=== PATIENT | male | born 1990 | race Caucasian/White ===

== ENCOUNTER 2017-11-01 21:22 | Emergency (ER) | payer SELFPAY ==
[~2017-11-01] VITALS: Ht 177.8 cm; Wt 66.2 kg
[~2017-11-01 21:22] MED LIST: SUBOXONE 8 MG-1 EAC2 SL
[2017-11-01 21:57] LABS: HEMATOCRIT 38.2 % (38.0-50.0); HEMOGLOBIN 13.9 G/DL (12.5-16.6); MCH 33.4 PG (29.0-34.0); MCHC 36.4 G/DL (30.0-36.0); MCV 91.8 FL (86-99); PLATELET COUNT 217 K/uL (156-360); RBC DIS.WIDTH-CV 11.6 % (11.8-14.6); RBC DIS.WIDTH-SD 38.9 % (39-53); RED BLOOD COUNT 4.16 M/uL (4.00-5.50); WHITE BLOOD COUNT 12.9 K/uL (4.1-10.2)
[2017-11-01 22:05] LABS: ALBUMIN 4.6 g/dL (3.2-4.8)
[2017-11-01 22:06] LABS: CHLORIDE 99 mEq/L (99-109); POTASSIUM 3.3 mEq/L (3.7-5.4); SODIUM 138 mEq/L (136-147)
[2017-11-01 22:08] LABS: GLUCOSE 204 mg/dL (70-99); TOTAL PROTEIN 7.1 g/dL (6.4-8.3)
[2017-11-01 22:10] LABS: TOTAL BILIRUBIN 0.3 mg/dL (0.0-1.0)
[2017-11-01 22:11] LABS: ALKALINE PHOSPHATASE 69 IU/L (3-129); SERUM ETHYL ALCOHOL 61 mg/dL
[2017-11-01 22:12] LABS: CREATININE 0.9 mg/dL (0.6-1.3); GFR ESTIMATE (CALCULATED) > 59 mL/min/ (58.99-99999)
[2017-11-01 22:13] LABS: AST (GOT) 95 IU/L (2-34); UREA NITROGEN (BUN) 13 mg/dL (9-23)
[2017-11-01 22:14] LABS: ALT (GPT) 51 IU/L (3-49)
[2017-11-01 23:36] VITALS: BP 130/81
== END 2017-11-01 23:44 | disposition home or self-care (01) ==
LOC: EME → EDBD 21:22 → EME 23:44
PROVIDERS: Emergency Medicine
DX: T40.1X1A Poisoning by heroin, accidental (unintentional), initial encounter (principal); E87.6 Hypokalemia; R73.9 Hyperglycemia, unspecified; F17.200 Nicotine dependence, unspecified, uncomplicated
CPT/HCPCS: 80053; 81003; 85027; 99281; 99284; G0480